=== PATIENT | female | born 1955 | race Caucasian/White ===

== ENCOUNTER → 2020-06-25 | Outpatient (CLI) | payer OTHER, MEDICARE | LOC: COL.RAD 13:07 | DX: M48.44 Fatigue fracture of vertebra, thoracic region (principal) ==

== ENCOUNTER → 2020-07-19 | Outpatient (CLI) | payer OTHER, MEDICARE | LOC: COL.RAD 13:44 | DX: S22.000G Wedge compression fracture of unspecified thoracic vertebra, subsequent encounter for fracture with delayed healing (principal); M48.44 Fatigue fracture of vertebra, thoracic region ==

== ENCOUNTER → 2020-11-09 | Outpatient (CLI) | payer MEDICARE, OTHER | LOC: MC.RAD 11:00 | DX: Z12.31 Encounter for screening mammogram for malignant neoplasm of breast (principal); Z98.82 Breast implant status ==

== ENCOUNTER → 2020-11-18 | Outpatient (CLI) | payer MEDICARE, OTHER | LOC: ZCOL.LAB 16:17 | DX: T81.69XA Other acute reaction to foreign substance accidentally left during a procedure, initial encounter (principal) ==

== ENCOUNTER 2021-06-27 11:48 | Emergency (ER) | payer MEDICARE, OTHER | END 2021-06-27 12:25 | disposition left against medical advice (07) | LOC: COL.ER 11:48 | DX: R69 Illness, unspecified (principal) ==

== ENCOUNTER 2021-10-21 08:02 | Day surgery (SDC) | payer MEDICARE, OTHER ==
[~2021-10-21] VITALS: Ht 160 cm; Wt 107.3 kg
--- NOTE | 2021-10-21 09:45 | NUR ---
patient finished up with endoscopy procedure, alert/orieted, vital signs stable, no resp.difficulty / airway patent with good oxygen saturation on room air, will continue to monitor
[2021-10-21 09:47] VITALS: BP 136/78; PULSE 84; TEMP 97
[2021-10-21 10:00] VITALS: BP 126/74; PULSE 85; TEMP 97.8
[2021-10-21 10:15] VITALS: BP 149/90; PULSE 85
[2021-10-21 10:30] VITALS: BP 147/88; PULSE 91; TEMP 98.2
--- NOTE | 2021-10-21 11:09 | NUR ---
patient continues to do well, vitals remain stable, denies discomfort, tolerating PO intake well, at bedside, has been by to discuss procedural findings, I have wnet over discharge instructions with them, IV removed and I will escort her out by wheelchair
[2021-10-21 16:18] VITALS: BP 93/79; PULSE 88; TEMP 97.3
[2021-10-21] MEDS ORDERED: DITROPAN XL10 MG PO (16:28)
[2021-10-21] MEDS ORDERED: MICARDIS40 MG PO (16:28)
[2021-10-21] MEDS ORDERED: PROZAC40 MG PO (16:30)
[2021-10-21] MEDS ORDERED: SYNTHROID0.1 MG/TAB PO (16:30)
[2021-10-21] MEDS ORDERED: NEURONTIN300 MG/CAP PO (16:31)
[2021-10-21] MEDS ORDERED: ZYLOPRIM 300MG300 MG PO (16:32)
[2021-10-21] MEDS ORDERED: GLUCOTROL XL10 MG PO (16:33)
[2021-10-21] MEDS ORDERED: ZOCOR 40MG40 MG PO (16:34)
[2021-10-21] MEDS ORDERED: UROCIT-K 1010 MEQ PO (16:34)
[2021-10-21] MEDS ORDERED: ATARAX 25MG25 MG/TAB PO (16:35)
[2021-10-21] MEDS ORDERED: ZYRTEC 10MG10 MG PO (16:36)
[2021-10-21] MEDS ORDERED: MULTI VITAMINS1 TAB PO (16:36)
[2021-10-21] MEDS ORDERED: BIOTIN10000 MC1 PO (16:37)
[2021-10-21] MEDS ORDERED: ASPIRIN 81M81 MG/TA2 PO (16:38)
[2021-10-21] MEDS ORDERED: OMEGA-3 FISH1000 MG PO (16:38)
[2021-10-21] MEDS ORDERED: VITAMIN D 400400 IU PO (16:39)
[2021-10-21] MEDS ORDERED: TYLENOL 8 HR PO (16:40)
[2021-10-21] MEDS ORDERED: BENADRYL25 M2 PO (16:40)
== END 2021-10-21 11:11 | disposition home or self-care (01) ==
LOC: SDCO 08:02
DX: Z12.11 Encounter for screening for malignant neoplasm of colon (principal); D12.4 Benign neoplasm of descending colon; K57.30 Diverticulosis of large intestine without perforation or abscess without bleeding; E66.9 Obesity, unspecified; K21.9 Gastro-esophageal reflux disease without esophagitis; C50.912 Malignant neoplasm of unspecified site of left female breast; Z17.0 Estrogen receptor positive status [ER+]
CPT/HCPCS: J2704; J7030